=== PATIENT | male | born 1955 | race African-American/Black ===

== ENCOUNTER 2025-02-15 19:02 | Emergency (ER) | payer SELFPAY ==
[~2025-02-15] VITALS: Ht 177.8 cm; Wt 77.1 kg
[~2025-02-15 19:02] MED LIST: IBUP-2029 PO; LOPE2CAP PO; PROT40 PO
[2025-02-15 19:05] VITALS: TEMP 37; O2SAT 98
[2025-02-15] MEDS: LIDOCAINE HCL 1% 20ML VIAL INFIL ONE (19:30)
[2025-02-15] MEDS: TETANUS, DIPHTHERIA, PERTUSSIS VAC/PF 0.5ML (>10YR OLD) IM ONE (20:42)
[2025-02-15] MEDS: ACETAMINOPHEN 325MG TABLET PO ONE (20:49)
[2025-02-16] MEDS ORDERED: BO1 TP (00:30)
[2025-02-16] MEDS: LIDOCAINE HCL 1% 20ML VIAL INFIL NR (00:31)
[2025-02-16] MEDS: FAMOTIDINE 20MG TABLET PO ONE (00:41)
[2025-02-16 01:14] VITALS: BP 116/58; PULSE 92; RESP 16; O2SAT 98
[2025-02-16] MEDS: BACITRACIN 14GM TUBE TOP ONE (01:17)
== END 2025-02-16 01:17 | disposition home or self-care (01) ==
LOC: ER 19:02
DX: S01.111A Laceration without foreign body of right eyelid and periocular area, initial encounter (principal); F12.90 Cannabis use, unspecified, uncomplicated; R42 Dizziness and giddiness; Z79.899 Other long term (current) drug therapy; X58.XXXA Exposure to other specified factors, initial encounter; Y93.89 Activity, other specified; Y92.89 Other specified places as the place of occurrence of the external cause; Y99.8 Other external cause status
CPT/HCPCS: 70450; 90715; 12013; 90471; 99285; J2003; Z7610